=== PATIENT | male | born 1995 | race Hispanic/Latino ===

== ENCOUNTER 2020-11-23 07:28 | Emergency (ER) | payer MEDICAID ==
[~2020-11-23] VITALS: Ht 170.2 cm; Wt 80.7 kg
[2020-11-23 07:30] VITALS: BP 138/89
[2020-11-23] MEDS ORDERED: ONDANSETRON ODT 4MG TAB ONE (07:38)
[2020-11-23 09:44] VITALS: BP 135/77
== END 2020-11-23 09:45 | disposition home or self-care (01) ==
LOC: EDH 07:28
DX: S06.0X0A Concussion without loss of consciousness, initial encounter (principal); R11.10 Vomiting, unspecified; X58.XXXA Exposure to other specified factors, initial encounter; Y93.89 Activity, other specified; Y92.89 Other specified places as the place of occurrence of the external cause; Y99.8 Other external cause status
CPT/HCPCS: 70450

== ENCOUNTER 2022-05-21 21:50 | Emergency (ER) | payer MEDICAID, OTHER ==
[~2022-05-21] VITALS: Ht 170.2 cm; Wt 89.5 kg
[2022-05-22] MEDS ORDERED: IBUP-2077 PO (00:57)
[2022-05-22] MEDS ORDERED: CYCL10TA16 PO (00:57)
[2022-05-22 01:05] VITALS: BP 117/74
== END 2022-05-22 01:09 | disposition home or self-care (01) ==
LOC: EDH 21:50
DX: S39.012A Strain of muscle, fascia and tendon of lower back, initial encounter (principal); Z79.1 Long term (current) use of non-steroidal anti-inflammatories (NSAID); W01.0XXA Fall on same level from slipping, tripping and stumbling without subsequent striking against object, initial encounter; Y93.02 Activity, running; Y92.89 Other specified places as the place of occurrence of the external cause; Y99.8 Other external cause status

== ENCOUNTER 2022-12-21 17:06 | Emergency (ER) | payer MEDICAID ==
[~2022-12-21 17:06] MED LIST: CYCL10TA16 PO; IBUP-2077 PO
== END 2022-12-21 17:30 | disposition left against medical advice (07) ==
LOC: EDH 17:06
DX: M79.669 Pain in unspecified lower leg (principal); Z53.21 Procedure and treatment not carried out due to patient leaving prior to being seen by health care provider
CPT/HCPCS: 99281

== ENCOUNTER 2023-01-07 01:01 | Emergency (ER) | payer MEDICAID ==
[~2023-01-07] VITALS: Ht 170.2 cm; Wt 83.9 kg
[2023-01-07] MEDS ORDERED: IBUP-1493 PO (03:29)
[2023-01-07 03:51] VITALS: BP 126/74; PULSE 70; RESP 18; O2SAT 98
== END 2023-01-07 03:52 | disposition home or self-care (01) ==
LOC: EDH 01:01
DX: S86.811A Strain of other muscle(s) and tendon(s) at lower leg level, right leg, initial encounter (principal); Z79.899 Other long term (current) drug therapy; Z98.890 Other specified postprocedural states; X58.XXXA Exposure to other specified factors, initial encounter; Y93.89 Activity, other specified; Y92.89 Other specified places as the place of occurrence of the external cause; Y99.8 Other external cause status
CPT/HCPCS: 73562; 73590